=== PATIENT | male | born 1965 | race Caucasian/White ===

== ENCOUNTER → 2022-09-13 | Day surgery (SDC) | payer BC, OTHER ==
[~2022-09-13] MED LIST: AMLODIPINE PO; ATORVASTATIN CA40 MG PO; FISH OIL 1,0001 EAC7; HYDROCHLOROTHIA25 MG PO; LOSARTAN PO; METHYLPHENIDATE10 M1 PO; METHYLPHENIDATE20 M3 PO; PROPOFOL IV EMULSION 50 ML IV ONE; ZEGERID OTC 201 EACH PO; ZETIA10 MG PO; [UNRECOGNIZED DRUG - CODE]
[2022-09-13 10:45] VITALS: BP 136/85
== END | disposition home or self-care (01) ==
LOC: ENDO 07:37
PROVIDERS: ATTEND Internal Medicine Gastroenterology
DX: K22.70 Barrett's esophagus without dysplasia (principal); K29.70 Gastritis, unspecified, without bleeding; K44.9 Diaphragmatic hernia without obstruction or gangrene; I10 Essential (primary) hypertension; Z86.010 Personal history of colon polyps; Z68.31 Body mass index [BMI] 31.0-31.9, adult; Z90.49 Acquired absence of other specified parts of digestive tract; R13.19 Other dysphagia; K21.9 Gastro-esophageal reflux disease without esophagitis; E78.00 Pure hypercholesterolemia, unspecified; G47.30 Sleep apnea, unspecified; Z01.810 Encounter for preprocedural cardiovascular examination
CPT/HCPCS: 43239; 43450; 93005; C9113; J2704

== ENCOUNTER → 2023-09-05 | Day surgery (SDC) | payer BC ==
[~2023-09-05] MED LIST changes: +AMLODIPINE BESYL5 MG PO; +FAMOTIDINE20 MG PO; +FENTANYL CITRATE/PF 100MCG/2 ML INJ ONE; +LACTATED RINGER'S 1,000 ML ONE; +METOCLOPRAMIDE HCL 10 MG/2ML VIAL ONE; +MIDAZOLAM HCL 2 MG/2 ML VIAL ONE; +PROPOFOL IV EMULSION 10 MG/ML 20 ML VIAL ONE; -PROPOFOL IV EMULSION 50 ML IV ONE; +RITALIN10 MG PO; +TRAZODONE HCL50 MG PO; +ZEGERID 20 MG1 EACH PO
[2023-09-05 07:38] VITALS: TEMP 97.9
[2023-09-05 08:03] VITALS: BP 105/68; PULSE 53; RESP 18; O2SAT 96
== END | disposition home or self-care (01) ==
LOC: ENDO 06:30
PROVIDERS: ATTEND Internal Medicine Gastroenterology
DX: K20.90 Esophagitis, unspecified without bleeding (principal); K31.7 Polyp of stomach and duodenum; K29.70 Gastritis, unspecified, without bleeding; K25.9 Gastric ulcer, unspecified as acute or chronic, without hemorrhage or perforation; K21.9 Gastro-esophageal reflux disease without esophagitis; K44.9 Diaphragmatic hernia without obstruction or gangrene; Z71.3 Dietary counseling and surveillance; G47.33 Obstructive sleep apnea (adult) (pediatric); I10 Essential (primary) hypertension; F90.9 Attention-deficit hyperactivity disorder, unspecified type; Z79.899 Other long term (current) drug therapy; Z68.32 Body mass index [BMI] 32.0-32.9, adult
CPT/HCPCS: 43251; 43450; C9113; J2250; J2704; J2765; J3010; J7121; 43239

== ENCOUNTER → 2024-02-27 | Day surgery (SDC) | payer BC ==
[~2024-02-27] MED LIST changes: -FENTANYL CITRATE/PF 100MCG/2 ML INJ ONE; -LACTATED RINGER'S 1,000 ML ONE; +LIDOCAINE HCL 2% LOCAL INJ 5 ML SDV VIAL INJ ONE; -METOCLOPRAMIDE HCL 10 MG/2ML VIAL ONE; -MIDAZOLAM HCL 2 MG/2 ML VIAL ONE; +TESTOSTERONE60 GM
[2024-02-27] MEDS: LACTATED RINGER'S 1,000 ML ONE (07:14)
[2024-02-27 08:25] VITALS: BP 117/80; PULSE 57; RESP 16; TEMP 97.6; O2SAT 98
[2024-02-27 09:18] LABS: ALBUMIN 3.5 g/dL (3.5-5.0); BILIRUBIN,DIRECT 0.2 mg/dL (0.0-0.5); BILIRUBIN,TOTAL 0.6 mg/dL (0.2-1.2); TOTAL PROTEIN 6.2 g/dL (6.5-8.1)
== END | disposition home or self-care (01) ==
LOC: OR 06:00
PROVIDERS: ATTEND Internal Medicine Gastroenterology
DX: R19.09 Other intra-abdominal and pelvic swelling, mass and lump (principal); K25.9 Gastric ulcer, unspecified as acute or chronic, without hemorrhage or perforation; K21.9 Gastro-esophageal reflux disease without esophagitis; K44.9 Diaphragmatic hernia without obstruction or gangrene; K22.9 Disease of esophagus, unspecified; I10 Essential (primary) hypertension; E78.5 Hyperlipidemia, unspecified; I45.10 Unspecified right bundle-branch block; Z86.010 Personal history of colon polyps; Z01.810 Encounter for preprocedural cardiovascular examination; Z79.899 Other long term (current) drug therapy
CPT/HCPCS: 36415; 43239; 80076; 86140; 93005; C9113; J2001; J2704; J7121

== ENCOUNTER 2024-04-25 07:53 | Inpatient (IN) | payer BC ==
[2024-04-20 13:46] LABS: BASOPHILS % 0.7 % (0.0-1.0); EOSINOPHILS # (AUTO) 0.2 (0.0-0.4); EOSINOPHILS % 2.8 % (0.0-6.0); HEMATOCRIT 45.2 % (38.2-49.6); HEMOGLOBIN 16.1 g/dL (14.0-18.0); LYMPHOCYTES # (AUTO) 1.9 (1.0-3.2); LYMPHOCYTES % 30.9 % (18.0-39.1); MEAN CORPUSCULAR HEMOGLOBIN 31.5 pg (28-32); MEAN CORPUSCULAR HGB CONC 35.6 g/dL (31-35); MEAN CORPUSCULAR VOLUME 88.5 fL (81-99); MONOCYTES # (AUTO) 0.5 (0.2-0.8); MONOCYTES % 7.9 % (4.4-11.3); NEUTROPHILS # (AUTO) 3.5 (2.1-6.9); NEUTROPHILS % 57.5 % (38.7-80.0); PLATELET COUNT 200 x10e3/uL (140-360); RED BLOOD COUNT 5.11 x10e6/uL (4.3-5.7); RED CELL DISTRIBUTION WIDTH 13.6 % (11.7-14.4); WHITE BLOOD COUNT 6.08 x10e3/uL (4.8-10.8)
[2024-04-20 14:12] LABS: ALBUMIN 3.9 g/dL (3.5-5.0); ALBUMIN/GLOBULIN RATIO 1.3 (0.8-2.0); ANION GAP 14.7 mmol/L (8-16); BILIRUBIN,TOTAL 0.7 mg/dL (0.2-1.2); CALCIUM 8.8 mg/dL (8.4-10.2); CREATININE, SERUM 1.13 mg/dL (0.72-1.25); POTASSIUM 3.7 mmol/L (3.5-5.1)
[~2024-04-25] VITALS: Ht 182.9 cm; Wt 110.7 kg
[2024-04-25] VITALS (21 sets, daily range): BP systolic 135–154; BP diastolic 70–91; PULSE 59–89; RESP 10–20; TEMP 97.5–97.9; O2SAT 95–100
[~2024-04-25 07:53] MED LIST changes: -LIDOCAINE HCL 2% LOCAL INJ 5 ML SDV VIAL INJ ONE; -PROPOFOL IV EMULSION 10 MG/ML 20 ML VIAL ONE
[2024-04-25] MEDS: LACTATED RINGER'S 1,000 ML ONE (09:25)
[2024-04-25] MEDS ORDERED: PROPOFOL IV EMULSION 10 MG/ML 20 ML VIAL ONE (13:11)
[2024-04-25] MEDS ORDERED: LIDOCAINE HCL 2% LOCAL INJ 5 ML SDV VIAL INJ ONE (13:11)
[2024-04-25] MEDS ORDERED: ROCURONIUM BROMIDE 10 MG/ML 5ML VIAL IV ONE (13:11)
[2024-04-25] MEDS ORDERED: SEVOFLURANE INHAL SOLN 250 ML PEN BTL ONE (13:11)
[2024-04-25] MEDS ORDERED: FENTANYL CITRATE/PF 100MCG/2 ML INJ ONE (13:21)
[2024-04-25] MEDS ORDERED: MIDAZOLAM HCL 2 MG/2 ML VIAL ONE (13:21)
[2024-04-25] MEDS: SODIUM CHLORIDE 0.9% 250ML IRRIG IR SCH (13:45)
[2024-04-25] MEDS ORDERED: EPINEPHRINE HCL 1:1000 1ML 1 MG/ML AMP ONE (13:48)
[2024-04-25] MEDS ORDERED: BUPIVACAINE 0.25% 30ML SDV ONE (13:48)
[2024-04-25] MEDS: FENTANYL CITRATE/PF 100MCG/2 ML INJ ONE (14:37)
[2024-04-25] MEDS: SODIUM CHLORIDE 0.9% 1000ML 1,000 ML IV SCH (15:29)
[2024-04-25] MEDS: HYDROMORPHONE 1MG/1ML INJ IV PRN (16:55)
[2024-04-25] MEDS ORDERED: ACETAMINOPHEN 1000 MG/100 ML IV PRN (17:00)
[2024-04-26] VITALS (31 sets, daily range): BP systolic 133–175; BP diastolic 78–98; PULSE 58–81; RESP 7–23; TEMP 97.5–98.4; O2SAT 93–99
[2024-04-26 06:19] LABS: BASOPHILS % 0.1 % (0.0-1.0); HEMATOCRIT 40.8 % (38.2-49.6); HEMOGLOBIN 14.7 g/dL (14.0-18.0); LYMPHOCYTES # (AUTO) 0.6 (1.0-3.2); LYMPHOCYTES % 6.3 % (18.0-39.1); MEAN CORPUSCULAR HEMOGLOBIN 31.7 pg (28-32); MEAN CORPUSCULAR VOLUME 88.1 fL (81-99); MONOCYTES % 10.7 % (4.4-11.3); NEUTROPHILS # (AUTO) 7.9 (2.1-6.9); NEUTROPHILS % 82.5 % (38.7-80.0); PLATELET COUNT 174 x10e3/uL (140-360); RED BLOOD COUNT 4.63 x10e6/uL (4.3-5.7); RED CELL DISTRIBUTION WIDTH 14.6 % (11.7-14.4)
[2024-04-26 06:32] LABS: WHITE BLOOD COUNT 9.63 x10e3/uL (4.8-10.8)
[2024-04-26 06:51] LABS: ANION GAP 14.2 mmol/L (8-16); CALCIUM 8.1 mg/dL (8.4-10.2); CREATININE, SERUM 1.05 mg/dL (0.72-1.25); POTASSIUM 4.2 mmol/L (3.5-5.1)
[2024-04-26] MEDS: BUPIVACAINE LIPOSOME/PF 266 MG/20 ML IJ ONE (14:58)
[2024-04-27] VITALS (33 sets, daily range): BP systolic 140–194; BP diastolic 78–100; PULSE 63–85; RESP 6–24; TEMP 97.9–99.8; O2SAT 90–96
[2024-04-27] MEDS: DIPHENHYDRAMINE HCL INJ 50 MG/ML VIAL IV ONE (00:29)
[2024-04-27 06:52] LABS: BASOPHILS % 0.2 % (0.0-1.0); EOSINOPHILS # (AUTO) 0.1 (0.0-0.4); EOSINOPHILS % 0.6 % (0.0-6.0); HEMATOCRIT 42.3 % (38.2-49.6); HEMOGLOBIN 14.1 g/dL (14.0-18.0); LYMPHOCYTES # (AUTO) 0.9 (1.0-3.2); LYMPHOCYTES % 8.2 % (18.0-39.1); MEAN CORPUSCULAR HEMOGLOBIN 30.4 pg (28-32); MEAN CORPUSCULAR HGB CONC 33.3 g/dL (31-35); MEAN CORPUSCULAR VOLUME 91.2 fL (81-99); MONOCYTES # (AUTO) 1.1 (0.2-0.8); MONOCYTES % 10.8 % (4.4-11.3); NEUTROPHILS # (AUTO) 8.4 (2.1-6.9); NEUTROPHILS % 79.9 % (38.7-80.0); PLATELET COUNT 183 x10e3/uL (140-360); RED BLOOD COUNT 4.64 x10e6/uL (4.3-5.7); RED CELL DISTRIBUTION WIDTH 13.3 % (11.7-14.4); WHITE BLOOD COUNT 10.45 x10e3/uL (4.8-10.8)
[2024-04-27 07:21] LABS: ANION GAP 12.7 mmol/L (8-16); CALCIUM 8.4 mg/dL (8.4-10.2); CREATININE, SERUM 0.89 mg/dL (0.72-1.25); POTASSIUM 3.7 mmol/L (3.5-5.1)
[2024-04-27] MEDS: HYDRALAZINE HCL 20 MG/ML VIAL IV PRN (09:14)
[2024-04-27] MEDS: HYDROMORPHONE 1MG/1ML INJ IV PRN ×2 (10:47→22:16)
[2024-04-27] MEDS: Morphine 4mg INJECTION 4 MG/ML INJ IV PRN (15:38)
[2024-04-27] MEDS: HYDROMORPHONE 1MG/1ML INJ IV ONE (18:14)
[2024-04-27] MEDS: DIPHENHYDRAMINE HCL INJ 50 MG/ML VIAL IV PRN (21:09)
[2024-04-28] VITALS (29 sets, daily range): BP systolic 131–174; BP diastolic 75–102; PULSE 68–84; RESP 14–25; TEMP 97.5–99.6; O2SAT 89–96
[2024-04-28 06:14] LABS: BASOPHILS % 0.2 % (0.0-1.0); EOSINOPHILS % 0.2 % (0.0-6.0); HEMATOCRIT 45.8 % (38.2-49.6); HEMOGLOBIN 15.7 g/dL (14.0-18.0); LYMPHOCYTES # (AUTO) 0.9 (1.0-3.2); LYMPHOCYTES % 5.9 % (18.0-39.1); MEAN CORPUSCULAR HGB CONC 34.3 g/dL (31-35); MEAN CORPUSCULAR VOLUME 90.3 fL (81-99); MONOCYTES # (AUTO) 1.6 (0.2-0.8); MONOCYTES % 10.8 % (4.4-11.3); NEUTROPHILS # (AUTO) 12.4 (2.1-6.9); NEUTROPHILS % 82.4 % (38.7-80.0); PLATELET COUNT 242 x10e3/uL (140-360); RED BLOOD COUNT 5.07 x10e6/uL (4.3-5.7); RED CELL DISTRIBUTION WIDTH 13.5 % (11.7-14.4); WHITE BLOOD COUNT 15.04 x10e3/uL (4.8-10.8)
[2024-04-28 06:50] LABS: ANION GAP 16.6 mmol/L (8-16); CALCIUM 8.7 mg/dL (8.4-10.2); CREATININE, SERUM 0.88 mg/dL (0.72-1.25); POTASSIUM 3.6 mmol/L (3.5-5.1)
[2024-04-28] MEDS: BISACODYL 10 MG SUPP PR ONE (08:05)
[2024-04-28] MEDS: HYDROMORPHONE 1MG/1ML INJ IV PRN ×2 (14:48→17:49)
[2024-04-29] VITALS (18 sets, daily range): BP systolic 143–175; BP diastolic 73–93; PULSE 64–97; RESP 14–24; TEMP 97.6–98.9; O2SAT 92–96
[2024-04-29] MEDS: BISACODYL 10 MG SUPP PR ONE (07:36)
[2024-04-29] MEDS: BISACODYL 10 MG SUPP PR SCH (21:00)
[2024-04-30] VITALS (12 sets, daily range): BP systolic 165–186; BP diastolic 82–104; PULSE 68–82; RESP 16–21; TEMP 97.4–98.4; O2SAT 90–95
[2024-04-30 08:36] LABS: BASOPHILS % 0.5 % (0.0-1.0); EOSINOPHILS # (AUTO) 0.4 (0.0-0.4); EOSINOPHILS % 4.3 % (0.0-6.0); HEMATOCRIT 38.4 % (38.2-49.6); HEMOGLOBIN 13.2 g/dL (14.0-18.0); LYMPHOCYTES # (AUTO) 1.4 (1.0-3.2); LYMPHOCYTES % 16.5 % (18.0-39.1); MEAN CORPUSCULAR HEMOGLOBIN 31.1 pg (28-32); MEAN CORPUSCULAR HGB CONC 34.4 g/dL (31-35); MEAN CORPUSCULAR VOLUME 90.4 fL (81-99); MONOCYTES # (AUTO) 0.9 (0.2-0.8); MONOCYTES % 11.2 % (4.4-11.3); NEUTROPHILS # (AUTO) 5.6 (2.1-6.9); NEUTROPHILS % 67.1 % (38.7-80.0); PLATELET COUNT 229 x10e3/uL (140-360); RED BLOOD COUNT 4.25 x10e6/uL (4.3-5.7); RED CELL DISTRIBUTION WIDTH 13.6 % (11.7-14.4); WHITE BLOOD COUNT 8.34 x10e3/uL (4.8-10.8)
[2024-04-30 08:58] LABS: ANION GAP 17.2 mmol/L (8-16); CALCIUM 8.5 mg/dL (8.4-10.2); CREATININE, SERUM 0.86 mg/dL (0.72-1.25); POTASSIUM 3.2 mmol/L (3.5-5.1)
[2024-04-30] MEDS: AMLODIPINE BESYLATE 5 MG TAB PO SCH (09:21)
[2024-04-30] MEDS ORDERED: AMLODIPINE BESYLATE 5 MG TAB PO SCH (14:15)
[2024-04-30] MEDS ORDERED: HYDROCODONE/APAP 7.5MG-325MG 1 EA TAB PO PRN (20:00)
[2024-04-30] MEDS: HYDROMORPHONE 1MG/1ML INJ IV STA (20:59)
[2024-04-30] MEDS: ONDANSETRON HCL INJ 2MG/ML 2ML 2 MG/ML VIAL IV PRN (22:05)
[2024-05-01] VITALS (9 sets, daily range): BP systolic 144–180; BP diastolic 80–95; PULSE 66–87; RESP 18–21; TEMP 97.8–98.4; O2SAT 90–95
[2024-05-01] MEDS: METOCLOPRAMIDE HCL 10 MG/2ML VIAL IV SCH (10:18)
[2024-05-01] MEDS: POTASSIUM CHLORIDE 20MEQ/100ML 100 ML IV ONE (10:18)
[2024-05-01 11:52] LABS: BASOPHILS % 0.2 % (0.0-1.0); EOSINOPHILS # (AUTO) 0.2 (0.0-0.4); EOSINOPHILS % 2.4 % (0.0-6.0); HEMATOCRIT 36.6 % (38.2-49.6); HEMOGLOBIN 12.9 g/dL (14.0-18.0); LYMPHOCYTES % 12.1 % (18.0-39.1); MEAN CORPUSCULAR HEMOGLOBIN 31.2 pg (28-32); MEAN CORPUSCULAR HGB CONC 35.2 g/dL (31-35); MEAN CORPUSCULAR VOLUME 88.6 fL (81-99); MONOCYTES # (AUTO) 0.9 (0.2-0.8); MONOCYTES % 10.6 % (4.4-11.3); NEUTROPHILS # (AUTO) 6.4 (2.1-6.9); NEUTROPHILS % 74.2 % (38.7-80.0); PLATELET COUNT 228 x10e3/uL (140-360); RED BLOOD COUNT 4.13 x10e6/uL (4.3-5.7); RED CELL DISTRIBUTION WIDTH 13.6 % (11.7-14.4); WHITE BLOOD COUNT 8.62 x10e3/uL (4.8-10.8)
[2024-05-01 12:00] LABS: ANION GAP 17.2 mmol/L (8-16); CALCIUM 8.4 mg/dL (8.4-10.2); CREATININE, SERUM 0.82 mg/dL (0.72-1.25)
[2024-05-01 12:02] LABS: POTASSIUM 3.2 mmol/L (3.5-5.1)
[2024-05-01] MEDS: BISACODYL 10 MG SUPP PR SCH (21:37)
[2024-05-02 05:17] LABS: BASOPHILS % 0.4 % (0.0-1.0); EOSINOPHILS # (AUTO) 0.4 (0.0-0.4); EOSINOPHILS % 5.7 % (0.0-6.0); HEMATOCRIT 36.4 % (38.2-49.6); HEMOGLOBIN 12.5 g/dL (14.0-18.0); LYMPHOCYTES # (AUTO) 1.1 (1.0-3.2); LYMPHOCYTES % 14.3 % (18.0-39.1); MEAN CORPUSCULAR HEMOGLOBIN 30.9 pg (28-32); MEAN CORPUSCULAR HGB CONC 34.3 g/dL (31-35); MEAN CORPUSCULAR VOLUME 90.1 fL (81-99); MONOCYTES # (AUTO) 0.9 (0.2-0.8); MONOCYTES % 12.1 % (4.4-11.3); NEUTROPHILS # (AUTO) 5.1 (2.1-6.9); NEUTROPHILS % 67.1 % (38.7-80.0); PLATELET COUNT 222 x10e3/uL (140-360); RED BLOOD COUNT 4.04 x10e6/uL (4.3-5.7); RED CELL DISTRIBUTION WIDTH 13.4 % (11.7-14.4); WHITE BLOOD COUNT 7.54 x10e3/uL (4.8-10.8)
[2024-05-02] MEDS: ACETAMINOPHEN 325 MG TAB ONE (05:34)
[2024-05-02] MEDS: ACETAMINOPHEN 325 MG TAB PO PRN (05:34)
[2024-05-02 05:38] LABS: ANION GAP 12.8 mmol/L (8-16); CREATININE, SERUM 0.86 mg/dL (0.72-1.25)
[2024-05-02 05:39] LABS: POTASSIUM 2.8 mmol/L (3.5-5.1)
[2024-05-02 08:50] VITALS: BP 144/80; PULSE 87; RESP 21; TEMP 98.3; O2SAT 93
[2024-05-02 08:51] VITALS: PULSE 64; RESP 18; O2SAT 93
[2024-05-02 09:20] VITALS: BP 181/89; PULSE 67; RESP 19; TEMP 99; O2SAT 94
[2024-05-02 12:22] VITALS: BP 178/79; PULSE 69; RESP 19; TEMP 97.6; O2SAT 93
[2024-05-02] MEDS: POTASSIUM CHLORIDE 20MEQ/100ML 200 ML IV ONE (12:43)
[2024-05-02 16:22] VITALS: BP 160/94; PULSE 70; RESP 19; TEMP 97.5; O2SAT 93
== END 2024-05-02 18:31 | disposition home or self-care (01) | DRG 328 ==
LOC: OR 07:53 → PACU V 13:41 → ICU 14:47 → MED/SURG 04-29 14:52
PROVIDERS: ADMIT Surgery; ATTEND Surgery
PROC: 0D160ZA Bypass Stomach to Jejunum, Open Approach (ICD-10-PCS; principal; 2024-04-25 10:34)
PROC: 0DB60ZZ Excision of Stomach, Open Approach (ICD-10-PCS; 2024-04-25 10:34)
DX: D13.1 Benign neoplasm of stomach (principal); K44.9 Diaphragmatic hernia without obstruction or gangrene; I10 Essential (primary) hypertension; E87.6 Hypokalemia; K21.9 Gastro-esophageal reflux disease without esophagitis; E78.5 Hyperlipidemia, unspecified; E66.9 Obesity, unspecified; Z68.33 Body mass index [BMI] 33.0-33.9, adult; Z90.49 Acquired absence of other specified parts of digestive tract
CPT/HCPCS: 36415; 71046; 80048; 80053; 85025; 88307; 94799; 99252; J0171; J0360; J0694; J1170; J1200; J2001; J2250; J2270; J2405; J2543; J2765; J3480; J7030